=== PATIENT | female | born 1990 | race American Indian/Alaskan Native ===

== ENCOUNTER 2017-10-19 22:37 | Outpatient (CLI) | payer MEDICAID ==
[2017-10-19] MEDS ORDERED: LACTATED RINGERS 1,000 ML IV ONE (22:38)
[2017-10-19 23:18] LABS: Bacteria,Urine 1+ /HPF (Negative); Bilirubin,Urine NEG (Negative); Blood,Urine NEG (Negative); Color,Urine Yellow (Yellow); Mucus,Urine FEW /HPF; Nitrite,Urine NEG (Negative); Protein,Urine <15 mg/dL mg/dL (Negative)
[2017-10-19 23:35] VITALS: BP 104/60
== END 2017-10-19 23:38 | disposition home or self-care (01) ==
LOC: TRG 22:37
PROVIDERS: ATTEND Obstetrics & Gynecology
DX: O47.02 False labor before 37 completed weeks of gestation, second trimester (principal); Z3A.20 20 weeks gestation of pregnancy
CPT/HCPCS: 59025; 81001